=== PATIENT | male | born 1965 | race Caucasian/White ===

== ENCOUNTER 2016-07-07 10:32 | Inpatient (IN) | payer OTHER ==
[~2016-07-07] VITALS: Ht 167.6 cm; Wt 69.3 kg
--- NOTE | ~2016-07-07 | CLPRLASSUM ---
PATIENT: FEROZ BAEZ | | [facility] UNIT #: [id number] | [address] AGE/SEX: 50 M : 65 | [address] | [place] [phone] ADMIT/REG DATE: 07/07/16 | ROOM: [facility] LOC: ADTC | ADTC | Client Problem List/Assessment Summary Date:07/14/2016 Problems identified by the client: Two pending cases,lacking any direction or purpose Problems identified by significant others: Gambling, switching addictions Client's Strengths: Intellingent, Caring, Personable, Funny Problem List: Code: T Client continued to use alcohol and drugs despite ongoing negative consequences. Code: T Client has learned to deny or stuff feelings; needs to learn to identify and process feelings with safe people to acquire the necessary skills to maintain fpc sobriety. Code: R Client does not "reach-out to others for help" and instead resumes using alcohol &/or drugs. Code: T Client relapsed/returned to alcohol &/or drug usage after previous treatment attempts. Code: R Client needs to address issues related to past trauma and abuse which is contributing to their continued abuse of chemicals. Code: R Client identifies with gambling issues which may also lead to relapse with chemicals. Code Hernandez: T: to be addressed during course of treatment O: problem noted, expected to resolve itself with abstinence--specific tx plan not required R: problem noted, will be referred upon discharge PRIMARY COUNSELOR: Mariola Desai
--- NOTE | ~2016-07-07 | INDIVTXPL2 ---
"PATIENT: FEROZ BAEZ | | [facility] UNIT #: [id number] | [address] AGE/SEX: 50 M : 65 | [address] | [place] [address] ADMIT/REG DATE: 07/07/16 | [facility]: ADTC | ADTC | Individualized Treatment Plan DATE: 07/21/16 Problem Statement/Issue Identified: Client has learned to deny or stuff feelings which may lead to relapse. Goal: Client needs to learn to identify and process feelings with safe people to acquire the necessary skills to maintain nursing home sobriety. Objectives/Activities to achieve goal: 1. Complete SIGNIFICANT EVENT FORMS on a daily basis and process with counselor as needed. Due Date: 08/04/16 Complete: Incomplete: 2. Write feelings letters as assigned and process with counselor and in family group. Due Date: 08/02/16 Complete: Incomplete: Client Signature Date Counselor Signaure: Date Outcome/Measurement of Progress Towards Goal: Counselor Signature: Date "
--- NOTE | ~2016-07-07 | TXPLANREV ---
"PATIENT: FEROZ BAEZ | | [facility] UNIT #: [id number] | [address] AGE/SEX: 50 M : 65 | [address] | [place] [address] ADMIT/REG DATE: 07/07/16 | ROOM: [facility] LOC: ADTC | ADTC | Treatment Plan/Staffing Review Date: 07/21/16 Treatment plan was reviewed and determined appropriate as written: yes, client has finished step 1. Treatment plan was reviewed and the following changes/addition/deletions are necessary: will add feelings letters Discharge plans were reviewed and determined appropriate as previously documented: Discharge plans were reviewed and determined to be as follows: Will look at sober living options in [place] Other pertinent issues discussed during this staffing review include: Address issue of trauma and will do EMDR with Dianne Elkins Staff Present: Dianne Ley, Shahram Coffey, Mariola Dorado PRIMARY COUNSELOR: KYREE Roque, [facility] Client Signature Counselor Signature Date Time "
--- NOTE | ~2016-07-07 | INDIVTXPL2 ---
"PATIENT: FEROZ BAEZ | | [facility] UNIT #: [id number] | [address] AGE/SEX: 50 M : 65 | [address] | [place] [address] ADMIT/REG DATE: 07/07/16 | ROOM: [facility] LOC: ADTC | ADTC | Individualized Treatment Plan DATE: 07/28/16 Problem Statement/Issue Identified: Client relapsed/returned to alcohol &/or drug usage after previous treatment attempts. Goal: Client will identify relapse triggers and form a personal relapse prevention plan. Objectives/Activities to achieve goal: 1. Complete RELAPSE PREVENTION workbook and process with counselor. Share letter to addiction in group. Due Date: 08/04/16 Complete: Incomplete: 2. Obtain list of 5-10 phone numbers of males in recovery and investigate list of possible sponsors. Due Date: 08/04/16 Complete: Incomplete: Client Signature Date Counselor Signaure: Date Outcome/Measurement of Progress Towards Goal: Counselor Signature: Date "
--- NOTE | ~2016-07-07 | INDIVTXPL2 ---
"PATIENT: FEROZ BAEZ | | [facility] UNIT #: [id number] | [address] AGE/SEX: 50 M : 65 | [address] | [place] [address] ADMIT/REG DATE: 07/07/16 | ROOM: [facility] LOC: ADTC | ADTC | Individualized Treatment Plan DATE: 07/14/2016 Problem Statement/Issue Identified: Code: T Client continued to use alcohol and drugs despite ongoing negative consequences. Goal: Client will learn how to identify negative consequences of his addiction and reach out to others in recovery. Objectives/Activities to achieve goal: 1. Complete HOW TO GET STARTED IN TREATMENT packet and process with cuonselor and group as assigned. Due Date: 07/15/16 Complete: Incomplete: 2. Complete Step 1 assignment to identify powerless and unmanagability and process with counselor. Share 15 examples of how you betrayed values (p. 10) and 10 specific examples of the effects it had on others (p. 11) in group. Due Date: 07/18/16 Complete: Incomplete: 3. Client is to attend AA/NA meetings and ask for at least 5 phone numbers of men in recovery to begin to build a support system and possible sponsor. Due Date: ongoing Complete: Incomplete: Client Signature Date Counselor Signaure: Date Outcome/Measurement of Progress Towards Goal: Counselor Signature: Date "
--- NOTE | ~2016-07-07 | TXPLANREV ---
"PATIENT: FEROZ BAEZ | | [facility] UNIT #: [id number] | [address] AGE/SEX: 50 M : 65 | [address] | [place] [address] ADMIT/REG DATE: 07/07/16 | ROOM: [facility] LOC: ADTC | ADTC | Treatment Plan/Staffing Review Date: 07/28/16 Treatment plan was reviewed and determined appropriate as written: yes, client is completing feelings letters. Treatment plan was reviewed and the following changes/addition/deletions are necessary: will add relapse prevention work. Discharge plans were reviewed and determined appropriate as previously documented: yes, client has been referred to [facility] in [place] and will also pursue sober living house in the [place] area while on the waiting list. Discharge plans were reviewed and determined to be as follows: Other pertinent issues discussed during this staffing review include: Client has been referred to Alejo Mcintosh to address identified gambling problem. He will also see Dianne Elkins for EMDR to address unresolved trauma. Staff Present: Dianne Ley, Shahram Coffey, Mariola Dorado, Jennifer Dorado PRIMARY COUNSELOR: KYREE Roque, [facility] Client Signature Counselor Signature Date Time "
--- NOTE | ~2016-07-07 | RESCARESUM ---
"PATIENT: FEROZ BAEZ | | [facility] UNIT #: [id number] | [address] AGE/SEX: 50 M : 65 | [address] | [place] [phone] ADMIT/REG DATE: 07/07/16 | ROOM: [facility] LOC: ADTC | ADT | Summary of Residential Care Primary Counselor: MARIA ELENA Cueva Date of Admission: 07/07/16 Date of Discharge: 08/04/16 Referral Source: [facility] Primary Care Provider Prior to Admission: No doctor listed Admitting Diagnosis: 304.40 (F15.20) stimulant use disorder severe, 303.90 (F10.20) alcohol use disorder severe, 304.30 (F12.20) cannabis use disorder severe. PER H and P: substance induced mood disorder, tobacco use disorder 305.10 (F17.20), prior melanoma. PER SILVINO Montero: 312.31 (F63.0) severe gambling disorder Discharge Diagnosis: same Goals Achieved: Client verbalized understanding of severity of his chemical dependency. He practiced identifying and expressing feelings appropriately. Client identified relapse triggers and formed personal relapse prevention plan. Client did EMDR sessions with TERESSA Samaniego LADC, to address issues of trauma. Client was also referred to MARIA ELENA Montero, [facility], to address issues with gambling. Continued Obstacles to Sobriety/Relapse Issues: dishonesty, minimization, rationalization, not following aftercare plan, not dealing with feelings appropriately, sarcasm, isolation, and/or not asking for help. Client reports chronic history of relapse. Family Issues Addressed: Client's mother and son attended family education on a Tuesday afternoon and took part in discussion on family roles. Client attended afternoon disease concept discussion and Tuesday evening family group alone. Y Individual Therapy Y Group Therapy Y Educational Series on Substance Abuse Y Parents/Significant Others Attended Family Program N Acute Medical Problems During the Course of Treatment N Transferred to Hospital During the Course of Treatment Y Accepting of Substance Abuse Problem N Non-accepting of Substance Abuse Problem N Required Psychological or Psychiatric Consultation During the Course of Treatment Completed AA Step # 1 During This Level of Care Reason For Discharge: X Completed Residential [place] Goals and Ready For Next Level of Care Continuing Care Plan/Recommendations: Intensive Partial Care X Sponsor Partial Care PATIENT: FEROZ BAEZ | | [facility] UNIT #: [id number] | [address] AGE/SEX: 50 M : 65 | [address] | [place] [address] ADMIT/REG DATE: 07/07/16 | ROOM: [facility] LOC: ADTC | [facility] | Summary of Residential Care X AA Meetings/NA Meetings Outpatient Co-dependency Services Therapeutic Community / [address] [address]/ [facility] Therapy Marriage Counseling Other Specific Continuing Care Plan: Client is recommended to reside in a [facility] to provide additional structure and support for his continued recovery. He can be admitted to [facility] in [place] on 08/05/16 at 10 A.M. however client is uncertain if he will reside there or not. Client is recommended to attend gambling treatment in addition to chemical dependency. Client has been referred to 12 step meetings and sponsorship. PRIMARY COUNSELOR: KYREE Roque, [facility]"
--- NOTE | ~2016-07-07 | INDIVTXPL2 ---
"PATIENT: FEROZ BAEZ | | [facility] UNIT #: [id number] | [address] AGE/SEX: 50 M : 65 | [address] | [place] [address] ADMIT/REG DATE: 07/07/16 | ROOM: [facility] LOC: ADTC | ADTC | Individualized Treatment Plan DATE: 07/28/16 Problem Statement/Issue Identified: Client identifies with gambling issues which may also lead to relapse with chemicals. Goal: Client will include gambling issues in his personal relapse prevention plan. Objectives/Activities to achieve goal: 1. Complete sessions with certified gambling counselorAlejo to include further assessment, referral and counseling. Due Date: 08/04/16 Complete: Incomplete: 2. Attend G.A. meeting and obtain phone numbers from contact people at the meeting. Due Date: 08/04/16 Complete: Incomplete: Client Signature Date Counselor Signaure: Date Outcome/Measurement of Progress Towards Goal: Counselor Signature: Date "
--- NOTE | ~2016-07-07 | INDIVTXPL2 ---
"PATIENT: FEROZ BAEZ | | [facility] UNIT #: [id number] | [address] AGE/SEX: 50 M : 65 | [address] | [place] [address] ADMIT/REG DATE: 07/07/16 | [facility] | Individualized Treatment Plan DATE: 07/28/16 Problem Statement/Issue Identified: Client identifies issue of past unresolved trauma. Goal: Client will address issues related to past trauma and abuse which is contributing to their continued abuse of chemicals. Objectives/Activities to achieve goal: 1. Complete EMDR session(s) with Dianne Elkins and journal experience to process in session. Due Date: 08/04/16 Complete: Incomplete: Client Signature Date Counselor Signaure: Date Outcome/Measurement of Progress Towards Goal: Counselor Signature: Date "
--- NOTE | 2016-07-07 13:53 | NUR ---
ADMISSION NOTE Rights/Responsibilities: Copy given and explained to client. Signed and accepted by client. Client oriented to physical lay out of the ADTC unit, given Big Book and admission packet. A Juan was assigned. [place] Client is a 50yr old male. Brought to tx by [facility] staff where he has been for the past 7 days. Lives in [place], [place]. DOC, Meth, Last used 06/28/16, Gram daily. No allergies, Meds: Vraylar 3mg. No family participation. Initial paperwork given and guidelines gone over. Was searched no contraband found. Doctor has been notified.
--- NOTE | 2016-07-07 22:47 | NUR ---
tech note: Client was checked into his room. Played a game for recreation & attended onsite NA meeting. Client has not been seen by the Dr. Client gave his first intro. SE: Coming to treatment.
--- NOTE | 2016-07-08 02:17 | NUR ---
Education: 1 Hour. Client attended "Unresolved Anger" video & discussion presented by staff.
--- NOTE | 2016-07-08 04:58 | NUR ---
BED NOTE: Client was in bed motionless with eyes closed all three bed checks.
--- NOTE | 2016-07-08 07:25 | NUR ---
Medication Note: Client took prn ibuprophen for H/A rated at 7.
--- NOTE | 2016-07-08 11:11 | NUR ---
Tech Note: Client participated in Spiritual Enrichment and followed programming.
--- NOTE | 2016-07-08 11:40 | NUR ---
Group 1.5hours 1:11 Clients shared assignments from their Getting Started packet and feelings letters. Client was orientated to group rules and goals. Client was quiet for most of group. Student: Abel Adrian
--- NOTE | 2016-07-08 13:07 | NUR ---
Education 1 Hour: Client heard a presentation from a member of the recovery community, who shared his experience, strength and hope.
--- NOTE | 2016-07-08 14:44 | NUR ---
FAMILY CONTACT Spoke with client's mother and father, who reside in [place]. Mother advised phone session would be easier for them. She shared she has been attending [facility] for 27 years and is glad he is in treatment.
--- NOTE | 2016-07-08 16:56 | NUR ---
STEP EDUCATION/1 HR/ focus was on step 4. Discussed what step 4 was about and then each person answered if there were any things in their family history that bothers them and do they feel they are blocked in any area. This client participated.
--- NOTE | 2016-07-08 20:20 | NUR ---
Education 1HR: Clt watched video by Estrella Farr on Step 5.
--- NOTE | 2016-07-08 22:31 | NUR ---
TECH NOTE: Client played Catch Phrase for REC, participated in Guided Meditation and attended onsite AA meeting. got clothes from tech SE: 1st full day
--- NOTE | 2016-07-09 04:23 | NUR ---
Bed Note: Clt lay motionless in bed with eyes closed showing no distress at all bed checks.
--- NOTE | 2016-07-09 11:55 | NUR ---
Group 1.5 Hr Ratio 1:10/Topics today were a step one a grief letter and a getting started packet. Client shared feedback wit h peers sharing issues andhow he thought there are things that are too big to forgive.
--- NOTE | 2016-07-09 13:11 | NUR ---
Tech Note: Client was seen by Alejo Alicea for a gambling screen.
--- NOTE | 2016-07-09 15:38 | NUR ---
Tech Note: Client watched a video "It Can't Happen To Me" and is working on Getting Started.
--- NOTE | 2016-07-09 22:10 | NUR ---
Tech note : Client watched tv, played games and went to an offsite AA meeting. SE; All day
--- NOTE | 2016-07-10 04:58 | NUR ---
Bed note: Client was in bed with eyes closed and no distress at all bed checks.
--- NOTE | 2016-07-10 15:05 | NUR ---
Tech Note: Client attended N.A.Panel and is working on getting started
--- NOTE | 2016-07-10 19:07 | NUR ---
tech note: client c/o level 6 headache,motrin 400 mg was given.
--- NOTE | 2016-07-10 20:28 | NUR ---
tech note: client played game for recreation & attended offsite AA meeting.
--- NOTE | 2016-07-11 12:04 | HP ---
ADMIT: 07/07/2016 RM/LOC: [facility] MR#: [id number] [address] [place], [place] [address] [place] [address] History and Physical SEX: M AGE: 50 : 1965 DATE OF SERVICE: CHIEF COMPLAINT: Drug and alcohol dependency. HISTORY OF PRESENT ILLNESS: The patient is a 50-year-old, , white male, admitted to residential level treatment at [facility] on 07/07/2016. He has had 6 prior DUIs, and his 2 charges pending for possession of meth. He was admitted to [facility] from 07/01 through 07/07 for detox. He states he wanted to come to treatment, so that he can get clean, straight, and sober. His drug of choice on admission is methamphetamines. He states, he has really been used them for about 20 months. He states, he experimented with meth at 18 years of age. Approximately, 20 months ago, he started using on a daily basis. He has been using a gram a day since. He states, he for the most part smoked, although, he did use IV meth one time. He denies any shared or dirty needles. His last meth use was 06/28. He does admit to intermittent cocaine use in the past. He states from 17 to 25, he used cocaine on a daily basis as well. He denies use since. Second drug of choice is ethanol. He first started drinking at 12 years of age on weekends with friends. He states, he drank daily by 17 years of age. He states he would usually have 2 to 3 beers during the week and a 6-pack on weekends. From 18 to 21, he was sober after having a couple DUIs. From 21 to his 30s, he would drink 6 to 12 beers on a daily basis. His heaviest drinking was 37 to 45 when he would have 10 to 12 beers every night. Since last 20 months, he has been drinking much less because he has been using the med. He states, he usually has about 2 beers a day and on 1 occasion at 10 to 12 beers in the last 20 months. His last drink was June 2016. He denies a history of alcohol withdrawal seizures, DTs or hallucinations. Third drug of choice is cannabis. He first started smoking a pot at 12 years of age. He states, he smoked pot daily from 12 until 24. His heaviest use was 16 to 18, when he smoked about a 0.5 ounce a week. From 18 to 24, smoked about 0.25 ounce a week. He states now he uses very rarely, less than once a month. His last use was May 2016. He additionally admits to experimenting with other drugs including and mushrooms once, heroin once, and as noted cocaine with last use being 2.5 years ago. PAST MEDICAL HISTORY/PAST SURGICAL HISTORY: Include a melanoma on left side of his face with left-sided radical lymph node dissection. Additionally, he has had a history of tonsillectomy. ILLNESSES: Include a possible history of bipolar disorder. He was treated with Abilify for 2 months. MEDICATIONS: None until he left [facility] when they started him on Vraylar 3 mg at bedtime. He would like to get off it. ADMIT: 07/07/2016 RM/LOC: [facility] MR#: [id number] [address] [place] [id number] [place] [id number] History and Physical SEX: M AGE: 50 : 1965 ALLERGIES: NONE. SOCIAL HISTORY: A 50-year-old, , white male and he has a 23 and 20- year-old sons. He is currently unemployed and previously worked in car sales. FAMILY HISTORY: Includes hypertension in his mother, breast cancer in his sister, and his father is an alcoholic. REVIEW OF SYSTEMS: Negative. PHYSICAL EXAMINATION: VITAL SIGNS: He is 5 feet 6 inches, and weight is 69 kg. Blood pressure 132/75, with a pulse of 88, and temperature 96.3. GENERAL APPEARANCE: A 50-year-old male, who is alert, oriented, in no acute distress. Affect is appropriate. HEENT: Pupils are reactive. Extraocular muscle intact. TMs normal. Throat normal. Mucous membranes moist. HEART: Regular without murmur. LUNGS: Clear. ABDOMEN: Soft, nontender, benign. : Deferred. RECTAL: Deferred. EXTREMITIES: Reveal no clubbing, cyanosis, edema, tracks, or splinter hemorrhages. NEURO: Normal including light touch, strength, or DTRs. ASSESSMENT: 1. Stimulant disorder, severe. 2. Alcohol use disorder, severe. ADMIT: 07/07/2016 RM/LOC: [facility] MR#: [id number] [address] [place] [id number] F[address] BAEZ [address] [place] [id number] History and Physical SEX: M AGE: 50 : 1965 3. Cannabis use disorder, service. 4. Full sustained remission. 5. Tobacco dependency. 6. Prior melanoma. 7. Substance-induced mood disorder, rule out bipolar. PLAN: Place him on multivitamin and thiamine given his history of alcohol abuse and dependency. We will proceed with drug and alcohol abuse dependency treatment and counseling and further evaluation and management based on his course during the hospitalization. I suspect he will need fdc house placement following discharge. Please see his hospital record for the details. Michael Thompson MD/ collin JOB #: [id number] CC: Michael Thompson, Attending Physician FAMILY PHYSICIAN, Family Physician
--- NOTE | 2016-07-11 15:38 | NUR ---
Tech Note: Client is working on Getting Started packet. Client attended roman catholic and watched tv.
--- NOTE | 2016-07-11 22:05 | NUR ---
Tech note: Participated in community clean, attended AA panel with Fabien Zaidi and went to an onsite [employer] PERSON meeting. SE; Voodoo
--- NOTE | 2016-07-12 04:57 | NUR ---
Bed note: Client was in bed with eyes closed and no distress at all bed checks.
--- NOTE | 2016-07-12 11:30 | NUR ---
Experiential Group 1.5hr/ Clients all participated in Family Sculpturing by role-playing, relating and giving feedback. This client was involved and attentive.
--- NOTE | 2016-07-12 13:25 | NUR ---
Education note: Client attended education speaker [place] on Tobacco.
--- NOTE | 2016-07-12 14:15 | NUR ---
Tech Note: client is working on Step 1.
--- NOTE | 2016-07-12 14:37 | NUR ---
I called the Senior Safety Support Manager's Office to check on his continuance. They said they filed a motion on Tuesday but had not heard anything back yet. I sent an email to Mariola to have her check on it on 07/13/16. Student: Abel Adrian
--- NOTE | 2016-07-12 16:00 | NUR ---
RECOVERY 101 1 HR/ Clients all shared what they have struggled with in treatment and what helps them. This client shared he knew by age 13 he was alcoholic and got heavy into cocaine age [age] and did tx by 19. He shared he has always done recovery his way, but now is learning needs to be open to change.
--- NOTE | 2016-07-12 18:01 | NUR ---
Education: 1 Hour. Client attended "Forgiveness" lecture presented by staff.
--- NOTE | 2016-07-12 22:59 | NUR ---
tech note: client played a game for recreation & attended onsite NA meeting. SE: Smoking Presentation.
--- NOTE | 2016-07-13 04:32 | NUR ---
tech note: client was motinless in no distress at all bed checks.
--- NOTE | 2016-07-13 15:32 | NUR ---
Tech Note: Client attended programming on Relapse Prevention and is working on Step 1.
--- NOTE | 2016-07-13 16:24 | NUR ---
Relapse Prevention, 05/31 ration, 1.0 hours, Client attended and participated in relapse prevention education which focused on relapse triggers/issues.
--- NOTE | 2016-07-13 16:55 | NUR ---
A.M. 1.5 hr res group/ratio 1:8/ Group heard a grief letter, a getting started, and also discussed shame, guilt, and forgiving self. This client related.
--- NOTE | 2016-07-13 22:17 | NUR ---
TECH NOTE: Client attended Alumni meeting and on-site AA meeting. SE: AA meeting
--- NOTE | 2016-07-13 22:54 | NUR ---
EDUCATION NOTE: 1HR lecture on Shame given by counselor
--- NOTE | 2016-07-14 04:39 | NUR ---
Bed note: Client was in bed with eyes closed and no distress at all bed checks.
--- NOTE | 2016-07-14 10:02 | NUR ---
Tech note: Client is working on Step 1
--- NOTE | 2016-07-14 11:31 | NUR ---
RES GROUP 1.5 HRS. RATIO 05/18. Topics today were assignments shared, addiction itself, craving, and spirituality. This client was active in all discussion, positive and on task. He asked good questions.
--- NOTE | 2016-07-14 12:43 | NUR ---
Education note: Client attended speaker Dimas Romero
--- NOTE | 2016-07-14 15:22 | NUR ---
Called [facility] Segundo and his court date go tmoved to October 07, [address] will send a letter here to the treatment center. Student: Abel Adrian
--- NOTE | 2016-07-14 16:00 | NUR ---
Individual, 1.0 hours, This session focused on developing clients problems/needs list along with clients treatment plan. Clients biospychosocial was also reviewed. Student Abel assisted with this.
--- NOTE | 2016-07-14 16:16 | NUR ---
SPIRITUAL EDUCATION 1 HR. Topic today was on how addiction is a disease of body mind and spirit and how the Steps fit in treating the SPIRIT. We also talked about ways to spirituality, payoffs, and how spirituality is related to both addiction and recovery.
--- NOTE | 2016-07-14 18:15 | NUR ---
Education: 1 Hour. Client attended "Boundaries" lecture presented by staff.
--- NOTE | 2016-07-14 22:04 | NUR ---
Tech note : Client played pictionary for rec and attended an onsite NA meeting. SE: Meeting with counselor
--- NOTE | 2016-07-15 05:17 | NUR ---
tech note: client was motionless in no distress at all bed checks.
--- NOTE | 2016-07-15 12:54 | NUR ---
Group 1.5 Hr Ratio 1:9/Topics today were feelings letters and an anger and hurt assignment. A client also shared how her just say no assignment went Client shared positve feedback about how he could relate to what peers were sharing.
--- NOTE | 2016-07-15 15:41 | NUR ---
Tech Note: Client participated in Spiritual Enrichment in the morning and went for an outdoor walk in the afternoon. Client stated that he is working on Step One.
--- NOTE | 2016-07-15 15:54 | NUR ---
step education/1 hr/ Focus was on step 6 and looking at character defects. Each person shared some questions and answers and identified what character defects they are ready to let go of and what ones they are not willing to let go of. This client participated.
--- NOTE | 2016-07-15 16:32 | NUR ---
Education 1 Hour: Client heard a presentaion on "Wellness in Recovery."
--- NOTE | 2016-07-15 23:03 | NUR ---
Tech note: Client worked on craft projects for the [employer] for rec and attended AA meeting SE:a;; day
--- NOTE | 2016-07-16 00:07 | NUR ---
Education note: Clients watched a movie on "my attitude' by Bobby Alexis.
--- NOTE | 2016-07-16 04:51 | NUR ---
Bed note; client was motionlees, with eyes closed at all bed checks.
--- NOTE | 2016-07-16 11:30 | NUR ---
Group 1.5 hr/ 11:1 Clients all got into discussion about how they found spirituality or struggle with HP concepts and a peer shared GS packet. This client shared about 3 spiritual experiences, and related to addiction, didn't use to look at alcohol as a drug.
--- NOTE | 2016-07-16 14:16 | NUR ---
[place]. 1 hr/Client shared his GS packet and did a good job. He appears to be ready to make some positive changes this time so he can remain clean and sober.
--- NOTE | 2016-07-16 16:07 | NUR ---
Tech Note: Client went with group for outside walk and watched "Marijuana", by Bryce Alexis, for education. Clt is working on Step 1.
--- NOTE | 2016-07-16 23:36 | NUR ---
Tech Note: Client read guidelines with peers. Client was late to the guideline reading. He also attended A.A. SE: Meeting with counselor
--- NOTE | 2016-07-17 05:31 | NUR ---
Bed Note: Client was motionless with eyes closed at all bed checks.
--- NOTE | 2016-07-17 15:39 | NUR ---
Tech Note: Client working on Step 1.
--- NOTE | 2016-07-17 20:27 | NUR ---
Tech Note: Client played a game for rec. They also attended the A.A.Meeting at [facility] and [place]. SE: Brenda
--- NOTE | 2016-07-18 05:27 | NUR ---
Bed Note: Client was motionless with eyes closed at all bed checks.
--- NOTE | 2016-07-18 15:15 | NUR ---
Tech Note: Client participated in Big Book Study. Client stated that he is working on Step One.
--- NOTE | 2016-07-18 23:28 | NUR ---
Client attended A.A.Panel and helped with community clean. SE: Playing cards
--- NOTE | 2016-07-19 05:00 | NUR ---
Bed Note: Client was motionless with eyes closed at all bed checks.
--- NOTE | 2016-07-19 10:07 | NUR ---
Tech note: Client is working on Step 1
--- NOTE | 2016-07-19 12:56 | NUR ---
Group 1.5 hr/ 9:1 Client did give feedback to peers sharing packet/letters. This client did share his GS packet, shared openly, saying how he never accepted his powerlessness in past and still isn't sure he has fully accepted it but hopes he is more involved/committed to recovery to make needed changes. He shared about gambling addiction also. Was suggested to do some EMDR.
--- NOTE | 2016-07-19 14:36 | NUR ---
Education note: Client attended speaker for education Sedrick Coffey
--- NOTE | 2016-07-19 16:00 | NUR ---
RECOVERY 101 1 HR/ Clients all filled out list of 30 consequences from their use to help look at how each addictive chemical they ever used has caused problems and how minimizing can sabotage treatment. Discussed this and also learned about phases of recovery process from Denial to Acceptance & Surrender.
--- NOTE | 2016-07-19 22:36 | NUR ---
TECH NOTE: Client played Catch Phrase in REC, and attended NA meeting. Late to client meeting. SE: All day
--- NOTE | 2016-07-19 23:56 | NUR ---
Education: 1 Hour. Client attended "Adult Children" presentation given by staff.
--- NOTE | 2016-07-20 05:21 | NUR ---
BED NOTE: Client was in bed, motionless with eyes closed all three bed checks.
--- NOTE | 2016-07-20 11:30 | NUR ---
GROUP 1.5 HRS. 1:10 Group discussion included defenses of blaming others and willingness to take responsibility for one's recovery. Peers processed HOW TO GET STARTED IN TREATMENT assignments. This client appeared attentive and offered personal feedback and appropriately confronted peer's blaming others. Client also expresed gratitude for treatment opportunity and shared about lack of treatment and poor treatment options in other states as he encouraged peers to also be grateful.
--- NOTE | 2016-07-20 16:19 | NUR ---
Tech Note: Client attended speaker meeting, presented by [employer]al [employer], and Relapse Prevention education. Client is currently working on Step 1.
--- NOTE | 2016-07-20 16:26 | NUR ---
Relapse Prevention; 1.0 hours; Client attended and actively participated in relapse prevention which focused on compulsive behaviors and relapse.
--- NOTE | 2016-07-20 23:20 | NUR ---
Education note: 1 hour lecture given by counselor on "Self Esteem"
--- NOTE | 2016-07-20 23:31 | NUR ---
Tech note: Client worked on projects for the [employer] for rec and attended AA meeting SEF:[facility] night
--- NOTE | 2016-07-21 04:10 | NUR ---
BED NOTE: Client was in bed, motionless with eyes closed all three bed checks.
--- NOTE | 2016-07-21 10:49 | NUR ---
Tech note: Client is working on BB
--- NOTE | 2016-07-21 11:43 | NUR ---
AM GROUP 9:05/09.5 HR: Client and peers participated as three peers processed issues and assignments. Much of the focus became how to rebuild a healthy and realistic value system after compromised original values to such a degree in active addiction. This client was active with feedback and personal sharing and then processed PAGES 10 & 11 from his STEP ONE. He did very well with this, identifying specific examples that evidenced his powerlessness and lack of control in what he described as the past two years. Client owned cheating on his , but then filled with guilt and remorse, he could never be with her again. 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 Client said he knew it was wrong all along, but did it to fatten his own paycheck. He received good feedback and a couple of confessions from others on their wrong doing.
--- NOTE | 2016-07-21 13:12 | NUR ---
Education note: Client attended speaker Agusto for education today.
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
--- NOTE | 2016-07-21 20:02 | NUR ---
SPIRITUaL EDUCATION 1 HR. Today we discussed difference between spirituality and bahai, and then played a spiritual challenge game where group discussed thought provoking questions on spirituality and the meaning.
--- NOTE | 2016-07-21 22:41 | NUR ---
EDUCATION NOTE: 1 HR Counselor gave a lecture on Disease Concept
--- NOTE | 2016-07-21 23:33 | NUR ---
tech note: client played Pictionary for recreation & attended onsite NA mtg. SE: counseling session.
--- NOTE | 2016-07-22 04:09 | NUR ---
BED NOTE: Client was in bed, motionless with eyes closed all three bed checks.
--- NOTE | 2016-07-22 11:52 | NUR ---
Group 1.5 Hr Ratio 2:20/Topic today was dealing with trauma. A new peer was also orientated to group rules and goals. Client shared he wanted to talk about trauma. He shared he is in the run mode a little and he goes from fight to flight. He forgets things for a while and then they come back. Client heard a lot of peers share they can relate to what he is experiencing.
--- NOTE | 2016-07-22 14:44 | NUR ---
Client signed release of information to [facility]. Left msg. for intake person
--- NOTE | 2016-07-22 15:27 | NUR ---
Tech Note: Client participated in Spiritual Enrichment in the morning and went for an outdoor walk in the afternoon. Client stated that he is working on writing Feelings Letters.
--- NOTE | 2016-07-22 16:37 | NUR ---
Family Education 3hrs Client attended family education and discussed past using history. Client shared about the consequences he experienced during active addiction. Student: Abel Adrian
--- NOTE | 2016-07-22 22:10 | NUR ---
EDUCATION NOTE 1HR: Clients watched Bryce Alexis video on Behavior
--- NOTE | 2016-07-22 22:36 | NUR ---
TECH NOTE: Client helped by doing crafts for the dance for REC, and attended AA meeting.
--- NOTE | 2016-07-23 04:39 | NUR ---
Bed note: client was in bed moitionless with eyes closed and no distress at all bed checks.
--- NOTE | 2016-07-23 12:54 | NUR ---
Group 1.5 Hr Ratio 1:11/Topics today were orientating a new member to group rules and goals and a couple getting started packets. Client shared how he could relate and asked some good clairifying questions if he did not understand what was being shared.
--- NOTE | 2016-07-23 15:50 | NUR ---
PEER REVIEWS 1.25 HRS: Clt participated in peer reviews and took a risk to give open and honest feedback to those receiving a review.
--- NOTE | 2016-07-23 16:02 | NUR ---
Tech Note: Client watched video ([employer]) and is working on Feelings Letters.
--- NOTE | 2016-07-23 22:12 | NUR ---
Tech Note : Client worked crafts and projects for the dance. Client watched TV.
--- NOTE | 2016-07-24 04:35 | NUR ---
Bed note: Client was in bed with eyes closed and no distress at all bed checks.
--- NOTE | 2016-07-24 17:50 | NUR ---
Tech Note: Client attended N.A. Panel and is working on FL's.
--- NOTE | 2016-07-24 19:07 | NUR ---
tech note: client attended offsite Alumni Dance.
--- NOTE | 2016-07-25 04:51 | NUR ---
BED NOTE: Client talked to tech first bed check but was in bed motionless with eyes closed all other checks.
--- NOTE | 2016-07-25 16:35 | NUR ---
Tech Note: Client participated in Big Book Study. Client stated that he is working on writing Feelings Letters.
--- NOTE | 2016-07-25 23:05 | NUR ---
tech note: Client attended AA Panel & participated in Community Clean. Client watched tv. SE: letter.
--- NOTE | 2016-07-26 04:11 | NUR ---
bed note: client was in bed with eyes closed and no distress at all bed checks.
--- NOTE | 2016-07-26 10:40 | NUR ---
Tech notes: Client is working on Fl's
--- NOTE | 2016-07-26 12:00 | NUR ---
Peer Review 1.5 hr/ Clients all participated in giving peer review to 4 peers on what they need to work on.
--- NOTE | 2016-07-26 12:53 | NUR ---
Education note: Client attended educational jasen Vang on Marijuana.
--- NOTE | 2016-07-26 21:00 | NUR ---
FAMILY EDUCATION 3 HRS., GROUP 2 HRS. 1:6 Client was accompanied by his mom and son for education. They took part in the discussion on the family roles, codependency and detachment. Client attended group alone and offered feedback to those who processed feelings letters.
--- NOTE | 2016-07-26 23:40 | NUR ---
Tech Note: Client attended N.A.Meeting. Client also went on walk for rec. had family today SE:Family
--- NOTE | 2016-07-26 23:58 | NUR ---
Education Note: 1 hour lecture on communication given by counselor.
--- NOTE | 2016-07-27 04:11 | NUR ---
Bed Note: client was in bed with eyes closed and no distress at all bed checks.
--- NOTE | 2016-07-27 12:44 | NUR ---
GROUP 1.5 HRS. 1:10 Client participated in orienting new peer to purpose and rules of group. New peer shared feelings of fear and hopelessness which lead to group discussion on learning to deal with feelings approrpriately. Group read pg. 62 of ALCOHOLICS ANONYMOUS and addressed issues of self-centeredness and being driven by ..."fear, self-delusion, self-seeking and self-pity".
--- NOTE | 2016-07-27 17:08 | NUR ---
Relapse Prevention, 05/27, 1.0 hours, Client attended and actively participated in relapse prevention which focused on completing the quiz What Do You Know About Relapse?
--- NOTE | 2016-07-27 17:33 | NUR ---
ech Note: Client is working on Feelings Letters.
--- NOTE | 2016-07-27 23:15 | NUR ---
Tech Note: Client took walk around park for rec. Client attended A.A.Meeting. Was late to client mtg SE: Counseling
--- NOTE | 2016-07-27 23:25 | NUR ---
Education Note: Client attended a one hour session with [facility] on HIV/AIDS/STD's for education.
--- NOTE | 2016-07-28 04:47 | NUR ---
Bed Note: client was in bed with eyes closed and no distress at all bed checks.
--- NOTE | 2016-07-28 10:27 | NUR ---
Tech notes: Client is working on Fl's.
--- NOTE | 2016-07-28 12:57 | NUR ---
Group 1.5 hrs 1:10 Client participated in orientating a new peer on the purpose of group and guidelines. Client shared how he needs to find out who he is while in treatment. Student: Abel Adrian
--- NOTE | 2016-07-28 15:29 | NUR ---
SPIRITUAL EDUCATION 1 hr. Today we oriented newcomers, discussed Starfish story then reached out to newcomers writing letters of encouragment and welcome, and using word art to make Big Book Bookmarks as welcoming gift.
--- NOTE | 2016-07-28 19:10 | NUR ---
Education: 1 Hour. Client attended Step 2 & Step 3 lecture given by staff.
--- NOTE | 2016-07-28 23:12 | NUR ---
Tech note : Client slept through rec, he first told the tech that he did not realise we had left for a walk. He came back later and told me that he had lied to me stating " nothing is going to change if I do the same stuff". Client attended an onsite NA meeting. SE; counseling
--- NOTE | 2016-07-29 05:14 | NUR ---
tech note: client was motionless in no distress at all bed checks.
--- NOTE | 2016-07-29 11:54 | NUR ---
Group 1.5 Hr Ratio 1:11/Topics were a feelings letter which lead to difficult dads. Client shared a feelings letter to his dad which lead to a lot of discussion about dealing with difficult dad's.
--- NOTE | 2016-07-29 13:46 | NUR ---
Tech Note: Client participated in Spiritual Enrichment in the morning and went for an outdoor walk in the afternoon. Client stated that he is working on, "Relapse Prevention."
--- NOTE | 2016-07-29 14:16 | NUR ---
Education 1 Hour: Client heard a lecture and saw a demonstration on "Infection Prevention."
--- NOTE | 2016-07-29 23:04 | NUR ---
Tech note:client took walk for rec, participated in guided meditation and attended AA mtg. SE:ABBY greenberg
--- NOTE | 2016-07-30 04:48 | NUR ---
Bed Note: Client was motionless with eyes closed at all bed checks.
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
--- NOTE | 2016-07-30 13:39 | NUR ---
Tech Note: Client watched Predator Pt.2 video and is working on Relapse Prevention.
--- NOTE | 2016-07-30 23:46 | NUR ---
TECH NOTE: Client participated in reading guidelines, attended optional offsite AA meeting, and watched tv/movies. Client was late for curfew SE: all day
--- NOTE | 2016-07-31 04:07 | NUR ---
BED NOTE: Client was in bed, motionless, with eyes closed all bed checks.
--- NOTE | 2016-07-31 15:54 | NUR ---
Tech Note: Client attended an off-site AA meeting in the morning. Client stated that he is working on, "Relapse Prevention."
--- NOTE | 2016-07-31 19:48 | NUR ---
TECH NOTE: Client played [employer] for REC, attended offsite AA meeting and watched tv/movies. SE: all day
--- NOTE | 2016-08-01 04:11 | NUR ---
Bed Note: Clt lay motionless in bed with eyes closed showing no distress at all bed checks.
--- NOTE | 2016-08-01 16:04 | NUR ---
Tech Note: Client read chapter 4 for Big Book study. Clt is working on his Letter to Addiction.
--- NOTE | 2016-08-01 22:11 | NUR ---
Tech Note : Client listened to an AA panel member share his experience, strength and hope, watched tv and participated in community clean.
--- NOTE | 2016-08-02 04:50 | NUR ---
Bed Note: Clt lay motionless in bed with eyes closed showing no distress at all bed checks.
--- NOTE | 2016-08-02 10:20 | NUR ---
Tech notes: Client is working on BB
--- NOTE | 2016-08-02 11:30 | NUR ---
Group 1.5 hr/ 22:2 Clients all participated in Sculpturing today by role-playing, giving feedback and relating. This client was attentive and all did discuss relapse can happen to anyone, and how to prevent it.
--- NOTE | 2016-08-02 13:32 | NUR ---
Educational Note: Client watched a video "Inhalent Abuse"
--- NOTE | 2016-08-02 18:21 | NUR ---
EDUCATION NOTE: 1HR Lecture on Feelings given by counselor.
--- NOTE | 2016-08-02 22:46 | NUR ---
tech note: Client went for a walk for rec, attended NA meeting SE: NA
--- NOTE | 2016-08-03 04:39 | NUR ---
bed note:client was in bed with eyes closed and no distress at all bed checks.
--- NOTE | 2016-08-03 11:30 | NUR ---
GROUP 1.5 HRS. 1:9 Clients oriented new peer to purpose and rules of group. Discussion included peers HOW TO GET STARTED IN TREATMENT which included issues of moving, using to fit in, family issues and being away from kids. This client offered some personal feedback.
--- NOTE | 2016-08-03 14:30 | NUR ---
Tech Note: Client participated in light stretching in the morning and went for an outdoor walk in the afternoon. Client stated that he is working on writing a letter to himself.
--- NOTE | 2016-08-03 14:46 | NUR ---
Education 0.5 Hour: Client watched the video, "How to Sabotage Your Treatment."
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
--- NOTE | 2016-08-03 18:53 | NUR ---
Education: 1 Hour. Staff gave lecture on Step 1.
--- NOTE | 2016-08-03 23:41 | NUR ---
tech note: client played Pictionary for recreation,attended Guided Meditation & onsite AA meeting. SE:
--- NOTE | 2016-08-04 04:44 | NUR ---
tech note: Client was motionless in no distress at all bed checks.
--- NOTE | 2016-08-04 10:05 | NUR ---
DISCHARGE NOTE Client left tx with mother and all personal belongings were sent with. Discharge instructions gone over and copy given.
--- NOTE | 2016-08-06 13:55 | NUR ---
Late Note for 08/03/16 due to illness: Relapse Prevention, 05/27, 1.0 hours, Client attended and actively participated in relapse prevention educatio which focused on internal and external triggers.
--- NOTE | 2016-09-12 11:57 | DS ---
ADMIT: 07/07/2016 RM/LOC: [facility] MR#: [id number] [place], [place] [id number] [place] [address] General Discharge Summary SEX: M AGE: 50 : 1965 ADMISSION DATE: 07/07/2016 DISCHARGE DATE: 08/04/2016 INDICATION FOR HOSPITALIZATION: Feroz is a 50-year-old, , white male, admitted to residential level treatment at [facility] on July 07 with 6 prior DUIs, 2 charges for pending possession of meth after being admitted to [facility] on July 01 through July 07 for detox. His drug of choice on admission was methamphetamines. Second drug of choice is alcohol. Third drug of choice is cannabis. Please see his admission H and P for the details regarding his history of present illness, past medical history, physical exam, and assessment at time of hospitalization. HOSPITAL COURSE: On admission, he was admitted to our residential level treatment [facility]. He was started on multivitamin and thiamine given his history of alcohol use disorder. His primary care counselor assigned was Malena Pavon. During treatment, he underwent individual and group therapy sessions on drug and alcohol abuse dependency. Completed an educational series on substance abuse. Relapse triggers were identified and relapse prevention plan was outlined. Spirituality issues were addressed. His mother was involved along with 1 son during the family portion of his treatment program. He completed step 1 of Alcoholics Anonymous. Reason for discharge was completion of residential level treatment goals. Aftercare recommendations include sponsor assignment, group home house placement to the [facility] in [place] along with active AA and NA meeting involvement. DISCHARGE MEDICATIONS: Include: 1. Multivitamin 1 daily. 2. Thiamine 100 mg daily. ADMIT: 07/07/2016 RM/LOC: [facility] MR#: [id number] [address] [address] [place] [address] General Discharge Summary SEX: M AGE: 50 : 1965 LABORATORY AND X-RAY DATA: None indicated. FINAL DISCHARGE DIAGNOSES: Include: 1. Stimulant use disorder, severe. 2. Alcohol use disorder, severe. 3. Cannabis use disorder, severe in full sustained remission. 4. Tobacco dependency. 5. Prior melanoma. 6. Substance-induced mood disorder rule out bipolar. PROCEDURES: Include drug and alcohol abuse dependency treatment and counseling. Please see his hospital record for the details. Michael Thompson MD/ collin JOB #: [id number] CC: Michael Thompson MD, Attending Physician NO FAMILY PHYSICIAN, Family Physician
== END 2016-08-04 10:20 | disposition home or self-care (01) | DRG 895 ==
LOC: ADTC 10:32
PROVIDERS: ADMIT Family Medicine
DX: F15.20 Other stimulant dependence, uncomplicated (principal); F19.24 Other psychoactive substance dependence with psychoactive substance-induced mood disorder; F10.20 Alcohol dependence, uncomplicated; F12.21 Cannabis dependence, in remission; F17.200 Nicotine dependence, unspecified, uncomplicated; Z85.820 Personal history of malignant melanoma of skin; Z72.6 Gambling and betting; Z56.0 Unemployment, unspecified; Z81.1 Family history of alcohol abuse and dependence